=== PATIENT | male | born 1940 | race Caucasian/White ===

== ENCOUNTER 2017-04-30 21:02 | Inpatient (IN) | payer MEDICARE, OTHER ==
[~2017-04-30 21:02] MED LIST: ASPI-99 PO; LOSA50TA PO; VYTO10TA35 PO
[2017-04-30 21:23] VITALS: BP 71/43; PULSE 58; RESP 16; TEMP 98.5; O2SAT 98
[2017-04-30 21:34] VITALS: BP 115/73; PULSE 54; RESP 16; TEMP 97.6; O2SAT 97
[2017-04-30] MEDS ORDERED: SODIUM CHLOR 0.9% 1000 ML INJ 1,000 ML IV SCH (21:38)
--- NOTE | 2017-04-30 21:42 | PD ---
HPI Chief Complaint: Pain: Acute or Chronic Time Seen by Provider: 21:35 Travel History International Travel<30 days: No Contact w/Intl Traveler<30days: No Traveled to known affect area: No History of Present Illness HPI 77yo M with PMH of HTN, CAD s/p CABG presents to the ED with c/o bilateral lower back pain that radiates to lower abdomen at around 8pm. Associated with nausea but not vomiting. Pt was sitting down when pain started and denies any fall or injuries. Denies any fever, chest pain, sob, focal weakness or numbness. PFSH Past Medical History Cancer: No Cardiovascular Problems: Yes (CT/ CABG) Diabetes: No Endocrine: Yes (PARATHYROID ADENOMA) Genitourinary: No Hepatitis: No Hiatal Hernia: No Immune Disorder: No Musculoskeletal: No Neurologic: No Psychiatric: No Reproductive: No Respiratory: No Thyroid Disease: No Past Surgical History Abdominal Surgery: Yes (APPY) AICD: No Cardiac Surgery: Yes (CABG) Endocrine Surgery: Yes (PARTIAL PARATHYROIDECTOMY/ ADENOMA EXC.) Joint Replacement: Yes (LEFT KNEE) Oral Surgery: Yes (TONSILLECTOMY) Pacemaker: No Social History Tobacco Use: No Substance Use: No Allergies-Medications (Allergen,Severity, Reaction): Coded Allergies: meperidine (Unverified Adverse Reaction, Severe, PROJECTILE VOMITING, RASH , 10/05/16) TRUNK RASH codeine (Unverified Adverse Reaction, Unknown, 10/05/16) DOES NOT RECALL ADVERSE RXN Reported Meds & Prescriptions Reported Meds & Active Scripts Active Reported Simvastatin 40 Mg Tab 40 Mg PO HS Aspirin 81 Mg Chew 81 Mg CHEW DAILY Losartan (Losartan Potassium) 25 Mg Tab 25 Mg PO DAILY Review of Systems Except as stated in HPI: all other systems reviewed are Neg Physical Exam Narrative GENERAL: 77yo M in moderate distress. SKIN: Focused skin assessment warm/dry. HEAD: Atraumatic. Normocephalic. EYES: Pupils equal and round. No scleral icterus. No injection or drainage. ENT: No nasal bleeding or discharge. Mucous membranes pink and moist. NECK: Trachea midline. No JVD. CARDIOVASCULAR: Regular rate and rhythm. No murmur appreciated. RESPIRATORY: No accessory muscle use. Clear to auscultation. Breath sounds equal bilaterally. GASTROINTESTINAL: Abdomen soft, +TTP right flank. +TTP left lower abdomen. No rebound tenderness or guarding. BACK: No midline ttp thoracic or lumbar spine. No CVA tenderness bilaterally. Pain is bilateral lumbar but not tender to palpation. MUSCULOSKELETAL: No obvious deformities. No clubbing. No cyanosis. No edema. NEUROLOGICAL: Awake and alert. No obvious cranial nerve deficits. Motor grossly within normal limits. Normal speech. PSYCHIATRIC: Appropriate mood and affect; insight and judgment normal. Data Data Last Documented VS Vital Signs Date Time Temp Pulse Resp B/P (MAP) Pulse Ox O2 Delivery O2 Flow Rate FiO2 04/30/17 23:32 71 18 129/72 (91) 97 Nasal Cannula 2.00 04/30/17 21:34 97.6 Orders Orders Complete Blood Count With Diff (04/30/17 21:38) Comprehensive Metabolic Panel (04/30/17 21:38) Lipase (04/30/17 21:38) Prothrombin Time / Inr (Pt) (04/30/17 21:38) Act Partial Throm Time (Ptt) (04/30/17 21:38) Urinalysis - C+S If Indicated (04/30/17 21:38) Ct Abd/Pel W Iv Contrast(Rout) (04/30/17 21:38) Ondansetron Inj (Zofran Inj) (04/30/17 21:45) Sodium Chlor 0.9% 1000 Ml Inj (Ns 1000 M (04/30/17 21:38) Electrocardiogram (04/30/17 21:38) Ketorolac Inj (Toradol Inj) (04/30/17 21:45) Morphine Inj (Morphine Inj) (04/30/17 22:30) Iodixanol 320 Inj (Rad Ct) (Visipaque 32 (04/30/17 23:08) Type And Screen (04/30/17 23:27) Morphine Inj (Morphine Inj) (04/30/17 23:45) Blood Product Administration (04/30/17 23:37) Sodium Chlor 0.9% 250 Ml Inj (Ns 250 Ml (04/30/17 23:45) Consult Vascular Surgery (04/30/17 ) Sodium Chlor 0.9% 1000 Ml Inj (Ns 1000 M (05/01/17 00:00) Admit Order (Ed Use Only) (05/01/17 00:02) Labs Laboratory Tests Test 04/30/17 21:50 White Blood Count 9.1 TH/MM3 Red Blood Count 4.70 MIL/MM3 Hemoglobin 13.9 GM/DL Hematocrit 41.4 % Mean Corpuscular Volume 88.2 FL Mean Corpuscular Hemoglobin 29.6 PG Mean Corpuscular Hemoglobin Concent 33.6 % Red Cell Distribution Width 14.1 % Platelet Count 266 TH/MM3 Mean Platelet Volume 8.1 FL Neutrophils (%) (Auto) 72.9 % Lymphocytes (%) (Auto) 17.8 % Monocytes (%) (Auto) 6.5 % Eosinophils (%) (Auto) 2.2 % Basophils (%) (Auto) 0.6 % Neutrophils # (Auto) 6.6 TH/MM3 Lymphocytes # (Auto) 1.6 TH/MM3 Monocytes # (Auto) 0.6 TH/MM3 Eosinophils # (Auto) 0.2 TH/MM3 Basophils # (Auto) 0.1 TH/MM3 CBC Comment DIFF FINAL Differential Comment Prothrombin Time 10.6 SEC Prothromb Time International Ratio 1.0 RATIO Activated Partial Thromboplast Time 21.0 SEC Blood Urea Nitrogen 29 MG/DL Creatinine 1.75 MG/DL Random Glucose 147 MG/DL Total Protein 6.8 GM/DL Albumin 3.8 GM/DL Calcium Level 9.8 MG/DL Alkaline Phosphatase 76 U/L Aspartate Amino Transf (AST/SGOT) 23 U/L Alanine Aminotransferase (ALT/SGPT) 25 U/L Total Bilirubin 0.4 MG/DL Sodium Level 140 MEQ/L Potassium Level 4.9 MEQ/L Chloride Level 106 MEQ/L Carbon Dioxide Level 24.2 MEQ/L Anion Gap 10 MEQ/L Estimat Glomerular Filtration Rate 38 ML/MIN Lipase 202 U/L [facility] Medical Decision Making Medical Screen Exam Complete: Yes Emergency Medical Condition: Yes Interpretation(s) EKG: Sinus bradycardia at 57bpm. Normal axis. No ST segment elevation or depression. Differential Diagnosis Nephrolithiasis vs. colitis vs. diverticulitis vs. AAA Narrative Course 77yo M with CAD s/p CABG here with sudden lower back pain radiating to lower abdomen at 8pm today. Denies any trauma, focal weakness or numbness. Pt was initially hypotensive at triage at 71/43 but repeat BP was 115/73. Pt was initially given toradol for pain since he was hypotensive. Pt was still in a lot of pain and BP has improved so given morphine 2mg IV. Pt return from CT scan and still in a lot of pain. BP is now 129/72 so another 2mg of morphine given. CT a/p showed 8.3 x 9.5 x 12.4 cm infrarenal abdominal aortic aneurysm with impending rupture. There is active bleeding into the aneurysm sac. I called Dr. Briggs, vascular surgeon immediately and discuss case with him at 11: 24pm. Dr. Briggs is on his way in. Type and screen sent. PRBC ordered just in case , ordered 4 units total and to transfuse one now. Pt has one 18 gauge peripheral IV and will place another large bore peripheral IV. Dr. Briggs arrived and evaluated the patient. He obtained consent and will take pt to the OR immediately. He also placed a central line. Discussed with escrow manager Dr. Dodd and accepted to his service. Critical Care Narrative Aggregate critical care time was 50 minutes. Time to perform other separately billable procedures was not included in the critical care time. My time did not include minutes spent treating any other patients simultaneously or on activities that did not directly contribute to the patient's treatment. The services I provided to this patient were to treat and/or prevent clinically significant deterioration that could result in: Cardiovascular collapse or . I provided critical care services requiring my management, as noted below: Chart data review, documentation time, medication orders and management, vital sign assessments/reviewing monitor data, ordering and reviewing lab tests, ordering and interpreting/reviewing x- rays and diagnostic studies, care of the patient and discussion of the patient with the admitting physicians. Diagnosis Primary Impression: Abdominal aortic aneurysm (AAA) greater than 5.5 cm in diameter in male Admitting Information Admitting Physician Requests: Admit Melinda Klein DO Apr 30, 2017 21:42
[2017-04-30] MEDS ORDERED: ONDANSETRON HCL 4 MG/2 ML VIAL IVP ONE (21:45)
[2017-04-30] MEDS ORDERED: KETOROLAC TROMETHAMINE 30 MG/ML (IVP) VIAL IVP ONE (21:45)
[2017-04-30] MEDS ORDERED: ASPI-516 CHEW (22:02)
[2017-04-30] MEDS ORDERED: SIMV40TA PO (22:02)
[2017-04-30] MEDS ORDERED: LOSA25TA PO (22:02)
[2017-04-30 22:24] LABS: AUTOMATED NEUTROPHIL # 6.6 TH/MM3 (1.8-7.7); BASOPHIL # 0.1 TH/MM3 (0-0.2); BASOPHIL % 0.6 % (0.0-2.0); EOSINOPHIL # 0.2 TH/MM3 (0-0.4); EOSINOPHIL % 2.2 % (0.0-4.0); HEMATOCRIT 41.4 % (39.0-51.0); HEMOGLOBIN 13.9 GM/DL (13.0-17.0); LYMPH % 17.8 % (9.0-44.0); LYMPHOCYTE # 1.6 TH/MM3 (1.0-4.8); MEAN CELL VOLUME 88.2 FL (80.0-100.0); MEAN CORPUSCULAR HEMOGLOBIN 29.6 PG (27.0-34.0); MEAN CORPUSCULAR HGB CONC 33.6 % (32.0-36.0); MEAN PLATELET VOLUME 8.1 FL (7.0-11.0); MONO % 6.5 % (0.0-8.0); MONOCYTE # 0.6 TH/MM3 (0-0.9); NEUT % 72.9 % (16.0-70.0); PLATELET COUNT 266 TH/MM3 (150-450); RED CELL DISTRIBUTION WIDTH 14.1 % (11.6-17.2); WHITE BLOOD COUNT 9.1 TH/MM3 (4.0-11.0)
[2017-04-30] MEDS ORDERED: MORPHINE SULFATE 2 MG/ML INJ IV PUSH ONE ×2 (22:30→23:45)
[2017-04-30 22:33] LABS: ALBUMIN 3.8 GM/DL (3.4-5.0); AST (GOT) 23 U/L (15-37); BICARBONATE 24.2 MEQ/L (21.0-32.0); BLOOD UREA NITROGEN 29 MG/DL (7-18); CALCIUM 9.8 MG/DL (8.5-10.1); CHLORIDE 106 MEQ/L (98-107); CREATININE 1.75 MG/DL (0.60-1.30); GLOMERULAR FILTRATION RATE 38 ML/MIN (>89); GLUCOSE,RANDOM 147 MG/DL (74-106); SODIUM (NA) 140 MEQ/L (136-145)
[2017-04-30 22:36] LABS: ALKALINE PHOSPHATASE 76 U/L (45-117); ALT (GPT) 25 U/L (12-78); TOTAL BILIRUBIN ADULT 0.4 MG/DL (0.2-1.0); TOTAL PROTEIN 6.8 GM/DL (6.4-8.2)
[2017-04-30 22:55] LABS: PROTHROMBIN TIME - PATIENT 10.6 SEC (9.8-11.6)
[2017-04-30] MEDS ORDERED: IODIXANOL 320 MG/ML 10 ML VIAL (for Rad CT) IVCONTRAST ONE (23:08)
--- NOTE | 2017-04-30 23:24 | RADRPT ---
EXAM DATE/TIME: 04/30/2017 23:04 [facility] COMPARISON: No previous studies available for comparison. INDICATIONS : Abdominal and lower back pain with nausea. IV CONTRAST: 47 cc Visipaque (iodixanol) IV ORAL CONTRAST: No oral contrast ingested. RADIATION DOSE: 11.89 CTDIvol (mGy) MEDICAL HISTORY : Myocardial infarction. Hypertension. Cardiovascular disease SURGICAL HISTORY : CABG Appendectomy. ENCOUNTER: Initial ACUITY: 1 day PAIN SCALE: 8/10 LOCATION: Bilateral abdomen TECHNIQUE: Volumetric scanning of the abdomen and pelvis was performed. Using automated exposure control and ad justment of the mA and/or kV according to patient size, radiation dose was kept as low as reasonably achievable to obtain optimal diagnostic quality images. DICOM format image data is available electro nically for review and comparison. FINDINGS: There is an 8.3 x 9.5 cm infrarenal abdominal aortic aneurysm. There is active bleeding into the aneu rysm sac inferiorly, series 2 image 53. There is some edema around the aneurysm but I don't see extra luminal blood. The aneurysm sac is approximately 12.4 cm craniocaudal. It begins just below the renal arteries and terminates approximately 3 cm above the bifurcation. No acute abnormality seen elsewhere. 5 mm nonobstructing stone lower pole of the right kidney. No obs truction or inflammatory changes are seen of the gastrointestinal tract. There is a fat containing in guinal hernia on the left. Atelectasis seen of the visualized lung bases. No acute bony abnormality. CONCLUSION: 8.3 x 9.5 x 12.4 cm infrarenal abdominal aortic aneurysm with impending rupture. There is active blee ding into the aneurysm sac. Dr. Klein notified by phone 11:20 PM. Victoriano Miranda MD on April 30, 2017 at 23:17 Board Certified Radiologist. This report was verified electronically.
[2017-04-30 23:32] VITALS: BP 129/72; PULSE 71; RESP 18; O2SAT 97
[2017-04-30] MEDS ORDERED: SODIUM CHLOR 0.9% 250 ML INJ 250 ML IV ONE (23:45)
[2017-05-01] VITALS (16 sets, daily range): BP systolic 80–128; BP diastolic 50–79; PULSE 65–102; RESP 14–20; TEMP 97.5–99.2; O2SAT 94–100
[2017-05-01] MEDS ORDERED: NOREPINEPHRINE 4 MG/4 ML AMP ONE (00:09)
[2017-05-01] MEDS ORDERED: VASOPRESSIN 20 UNITS/ML VIAL ONE (00:10)
[2017-05-01] MEDS ORDERED: NITROGLYCERIN-D5W 50 MG/250 ML 250 ML ONE (00:34)
[2017-05-01] MEDS ORDERED: HEPARIN SODIUM - IV 10,000 UNITS/10 ML VIAL ONE (01:15)
[2017-05-01 01:28] LABS: BILIRUBIN, URINE NEG (NEG); BLOOD, URINE NEG (NEG); GLUCOSE,URINE NEG (NEG); KETONE, URINE NEG (NEG); NITRITE,URINE NEG (NEG); PH, URINE 6.5 (5.0-8.5); SQUAMOUS EPITHELIAL CELL URINE <1 /hpf (0-5); URINE COLOR YELLOW (YELLW/STRAW); URINE LEUKOCYTE ESTERASE NEG (NEG)
[2017-05-01] MEDS ORDERED: PIPERACIL-TAZO 4.5 GM PREMIX 100 ML IV ONE (02:00)
[2017-05-01] MEDS ORDERED: SODIUM BICARBONATE 8.4% INJ 50 MEQ/50 ML SYR ONE (03:46)
[2017-05-01] MEDS ORDERED: SODIUM BICARBONATE 8.4% INJ 0 ML ONE (03:46)
[2017-05-01] MEDS ORDERED: CALCIUM CHLORIDE 10% SOLN 1 GRAM/10 ML SYR ONE (03:46)
[2017-05-01] MEDS ORDERED: ALBUMIN 5% INJ 250 ML IV ONE (03:54)
[2017-05-01] MEDS ORDERED: SODIUM CHLOR 0.9% 1000 ML INJ 1,000 ML IV SCH (05:28)
[2017-05-01] MEDS ORDERED: NALOXONE HCL 0.4 MG/ML AMP IV PUSH PRN (05:30)
[2017-05-01] MEDS ORDERED: MISCELLANEOUS NURSING INFORMATION XX SCH (05:30)
[2017-05-01] MEDS ORDERED: ONDANSETRON HCL 4 MG/2 ML VIAL IV PUSH PRN (05:30)
[2017-05-01] MEDS ORDERED: Post-op Orders (for Pharmacy) XX ONE (05:30)
[2017-05-01] MEDS ORDERED: ACETAMINOPHEN 325 MG TAB PO PRN (05:30)
[2017-05-01] MEDS ORDERED: fentaNYL DRIP 250 ML IV PRN ×2 (05:30→05:45)
[2017-05-01] MEDS ORDERED: MIDAZOLAM HCL 2 MG/2 ML VIAL IV PUSH ONE (05:30)
[2017-05-01] MEDS ORDERED: SODIUM CHLORIDE 0.9% FLUSH 10 ML FLUSH IV FLUSH PRN ×2 (05:30)
[2017-05-01] MEDS ORDERED: RESP: ALBUTEROL 2.5 MG/IPRATROPIUM 0.5 MG NEB (PRN) INH (05:30)
[2017-05-01] MEDS ORDERED: MIDAZOLAM 100 MG/100 ML INJ 100 ML IV PRN (05:30)
[2017-05-01] MEDS ORDERED: CHLORHEXIDINE GLUCONATE 2 % 1 PACK (2 CLOTHS) TOP PRN (05:30)
[2017-05-01] MEDS ORDERED: PROPOFOL 500 MG/50 ML INJ 50 ML ONE (05:42)
[2017-05-01] MEDS ORDERED: NOREPINEPHRINE-DEXTROSE DRIP 250 ML IV PRN (05:45)
[2017-05-01] MEDS ORDERED: SODIUM CHLOR 0.9% 1000 ML INJ 1,000 ML IV ONE ×2 (05:45)
[2017-05-01] MEDS ORDERED: TERBUTALINE INJ 1 MG/ML AMP SQ PRN ×2 (05:45→07:45)
[2017-05-01] MEDS: PROPOFOL 1000 MG/100 ML INJ 100 ML IV PRN ×2 (06:01→07:55)
--- NOTE | 2017-05-01 06:08 | PD.CAR.PN ---
CVT Progress Note Subjective/Hospital Course: 05/01/2017 Patient with a posterior partially contained rupture of juxtarenal abdominal aortic aneurysm Status post emergent repair with a straight graft Patient now in the ICU Intensivists team consulted Most likely patient will be extubatable this morning while some additional studies are pending Objective: Vital Signs Date Time Temp Pulse Resp B/P (MAP) Pulse Ox O2 Delivery O2 Flow Rate FiO2 05/01/17 05:51 100 40 05/01/17 00:27 71 18 128/78 (95) 97 Nasal Cannula 2.00 04/30/17 23:32 71 18 129/72 (91) 97 Nasal Cannula 2.00 04/30/17 21:34 97.6 54 16 115/73 (87) 97 04/30/17 21:23 98.5 58 16 71/43 (52) 98 Room Air Labs: Laboratory Tests Test 04/30/17 21:50 05/01/17 00:35 05/01/17 01:53 05/01/17 04:22 White Blood Count 9.1 TH/MM3 (4.0-11.0) Red Blood Count 4.70 MIL/MM3 (4.50-5.90) Hemoglobin 13.9 GM/DL (13.0-17.0) Hematocrit 41.4 % (39.0-51.0) Mean Corpuscular Volume 88.2 FL (80.0-100.0) Mean Corpuscular Hemoglobin 29.6 PG (27.0-34.0) Mean Corpuscular Hemoglobin Concent 33.6 % (32.0-36.0) Red Cell Distribution Width 14.1 % (11.6-17.2) Platelet Count 266 TH/MM3 (150-450) Mean Platelet Volume 8.1 FL (7.0-11.0) Neutrophils (%) (Auto) 72.9 % (16.0-70.0) Lymphocytes (%) (Auto) 17.8 % (9.0-44.0) Monocytes (%) (Auto) 6.5 % (0.0-8.0) Eosinophils (%) (Auto) 2.2 % (0.0-4.0) Basophils (%) (Auto) 0.6 % (0.0-2.0) Neutrophils # (Auto) 6.6 TH/MM3 (1.8-7.7) Lymphocytes # (Auto) 1.6 TH/MM3 (1.0-4.8) Monocytes # (Auto) 0.6 TH/MM3 (0-0.9) Eosinophils # (Auto) 0.2 TH/MM3 (0-0.4) Basophils # (Auto) 0.1 TH/MM3 (0-0.2) CBC Comment DIFF FINAL Differential Comment Prothrombin Time 10.6 SEC (9.8-11.6) Prothromb Time International Ratio 1.0 RATIO Activated Partial Thromboplast Time 21.0 SEC (24.3-30.1) Blood Urea Nitrogen 29 MG/DL (7-18) Creatinine 1.75 MG/DL (0.60-1.30) Random Glucose 147 MG/DL (74-106) Total Protein 6.8 GM/DL (6.4-8.2) Albumin 3.8 GM/DL (3.4-5.0) Calcium Level 9.8 MG/DL (8.5-10.1) Alkaline Phosphatase 76 U/L (45-117) Aspartate Amino Transf (AST/SGOT) 23 U/L (15-37) Alanine Aminotransferase (ALT/SGPT) 25 U/L (12-78) Total Bilirubin 0.4 MG/DL (0.2-1.0) Sodium Level 140 MEQ/L (136-145) Potassium Level 4.9 MEQ/L (3.5-5.1) Chloride Level 106 MEQ/L (98-107) Carbon Dioxide Level 24.2 MEQ/L (21.0-32.0) Anion Gap 10 MEQ/L (5-15) Estimat Glomerular Filtration Rate 38 ML/MIN (>89) Lipase 202 U/L (73-393) Urine Color YELLOW (YELLW/STRAW) Urine Turbidity CLEAR (CLEAR) Urine pH 6.5 (5.0-8.5) Urine Specific [place] 1.036 (1.002-1.035) Urine Protein NEG mg/dL (NEG-TRACE) Urine Glucose (UA) NEG mg/dL (NEG) Urine Ketones NEG mg/dL (NEG) Urine Occult Blood NEG (NEG) Urine Nitrite NEG (NEG) Urine Bilirubin NEG (NEG) Urine Urobilinogen LESS THAN 2.0 MG/DL (LESS Urine Leukocyte Esterase NEG (NEG) Urine RBC LESS THAN 1 /hpf (0-3) Urine WBC LESS THAN 1 /hpf (0-5) Urine Squamous Epithelial Cells <1 /hpf (0-5) Microscopic Urinalysis Comment CULT NOT INDICATED Blood Gas Puncture Site DRAWN IN OR DRAWN IN OR Blood Gas Patient Temperature 98.6 98.6 Blood Gas HCO3 21 mmol/L (22-26) 20 mmol/L (22-26) Blood Gas Base Excess -4.0 mmol/L (-2-2) -5.3 mmol/L (-2-2) Blood Gas Oxygen Saturation 97 % (90-100) 98 % (90-100) Arterial Blood pH 7.35 (7.380-7.420) 7.31 (7.380-7.420) Arterial Blood Partial Pressure CO2 38 mmHg (38-42) 41 mmHg (38-42) Arterial Blood Partial Pressure O2 234 mmHg (61-120) 226 mmHg (61-120) Arterial Blood Oxygen Content 16.3 Vol % (12.0-20.0) 14.1 Vol % (12.0-20.0) Arterial Blood Carboxyhemoglobin 0.7 % (0-4) 0.5 % (0-4) Arterial Blood Methemoglobin 1.2 % (0-2) 1.0 % (0-2) Blood Gas Hemoglobin 11.5 G/DL (12.0-16.0) 9.9 G/DL (12.0-16.0) Blood Gas Inspired Oxygen 60 % 60 % Oxygen Delivery Device OR Result Diagram: 04/30/17214904/30/172149 Kevin Perez MD May 01, 2017 06:08
[2017-05-01] MEDS: metroNIDAZOLE 500 MG INJ 100 ML IV SCH ×3 (06:22→20:53)
[2017-05-01 06:30] LABS: AUTOMATED NEUTROPHIL # 12.7 TH/MM3 (1.8-7.7); BASOPHIL % 0.1 % (0.0-2.0); HEMOGLOBIN 10.7 GM/DL (13.0-17.0); LYMPH % 5.6 % (9.0-44.0); LYMPHOCYTE # 0.8 TH/MM3 (1.0-4.8); MEAN CORPUSCULAR HEMOGLOBIN 29.6 PG (27.0-34.0); MEAN CORPUSCULAR HGB CONC 33.3 % (32.0-36.0); MEAN PLATELET VOLUME 7.7 FL (7.0-11.0); MONO % 6.2 % (0.0-8.0); MONOCYTE # 0.9 TH/MM3 (0-0.9); NEUT % 88.1 % (16.0-70.0); PLATELET COUNT 194 TH/MM3 (150-450); WHITE BLOOD COUNT 14.5 TH/MM3 (4.0-11.0)
[2017-05-01] MEDS ORDERED: DO NOT ADM ANY ANTICOAGULANT DRUGS PRN (06:30)
[2017-05-01] MEDS: NORMOSOL R INJ 1,000 ML IV SCH ×4 (06:38→20:54)
[2017-05-01 06:50] LABS: ALBUMIN 2.8 GM/DL (3.4-5.0); BICARBONATE 22.2 MEQ/L (21.0-32.0); CALCIUM-PROTEIN CORRECTED 8.2 MG/DL (8.5-10.1); CREATININE 1.44 MG/DL (0.60-1.30); MAGNESIUM 2.2 MG/DL (1.5-2.5); TOTAL BILIRUBIN ADULT 0.5 MG/DL (0.2-1.0); TOTAL PROTEIN 4.9 GM/DL (6.4-8.2)
--- NOTE | 2017-05-01 06:50 | RADRPT ---
EXAM DATE/TIME: 05/01/2017 06:00 [facility] COMPARISON: CT ABDOMEN & PELVIS W CONTRAST, April 30, 2017, 23:04. INDICATIONS : Shortness of breath, possible pulmonary disease, Left subclavian central line placement. MEDICAL HISTORY : Myocardial infarction. Hypertension Cardiovascular disease. AAA SURGICAL HISTORY : CABG. Appendectomy. Abdominal aortic aneurysm repair. ENCOUNTER: Subsequent ACUITY: 2 days PAIN SCORE: Non-responsive. LOCATION: Bilateral chest FINDINGS: There is mild left base atelectasis. Lungs otherwise appear clear. No large effusion. No pneumothorax . Patient is now intubated. The endotracheal tube tip is approximately 3 cm above the adriel. There is a nasogastric tube now present as well, coiled in the upper stomach. There is a left subclavian centr al venous catheter with tip at the atriocaval junction. Median sternotomy changes are again noted. There appear to be some new midline laparotomy abby. CONCLUSION: 1. Apparent intra-midline laparotomy. 2. Mild left base atelectasis. Lungs otherwise clear. 3. Lines and tubes as above appear appropriately positioned. No pneumothorax or other acute complicat ion. Victoriano Miranda MD on May 01, 2017 at 6:47 Board Certified Radiologist. This report was verified electronically.
--- NOTE | 2017-05-01 07:33 | HHI.HP ---
HPI Service Critical Care Medicine Primary Care Physician Alonso Chakraborty MD Admission Diagnosis AAA Diagnosis: Travel History International Travel<30 Days: No Contact w/Intl Traveler <30 Da: No Traveled to Known Affected Are: No History of Present Illness HPI This is a 77-year-old male, with PMH of HTN, CAD s/p CABG presents to [facility] ED with c/o bilateral lower back pain that radiates to lower abdomen evening of 04/30/2017, which was with nausea. but not vomiting. CT of the abdomen and pelvis revealed an 8.3 x 9.5 x 12.4 cm infrarenal abdominal aortic aneurysm with active bleeding. The patient was transferred to the OR and emergent repair of contained ruptured juxtarenal AAA was performed. A right ulnar A-line was placed preoperatively 2/2 to the inability to radial due removal of bilateral radial arteries from CABG performed in 1999. The ulnar arterial line was removed at the end of the surgical case, a femoral line was attempted but unsuccessful. Aortic clamp time intraoperatively was 51 minutes, EBL approximately 500 cc, IV fluids 5 L. The patient was transported to CVICU, and critical care medicine was consulted. Upon initial evaluation in the CVICU systolic blood pressure was noted to be 77, the patient was bolused with 1 L of normal saline and placed on Levophed currently at 3 mcgs/minute, currently being weaned. History PFSH Past Medical History Cancer: No Cardiovascular Problems: Yes ([place]/ CABG) Diabetes: No Endocrine: Yes (PARATHYROID ADENOMA) Genitourinary: No Hepatitis: No Hiatal Hernia: No Immune Disorder: No Musculoskeletal: No Neurologic: No Psychiatric: No Reproductive: No Respiratory: No Thyroid Disease: No Past Surgical History Abdominal Surgery: Yes (APPY) AICD: No Cardiac Surgery: Yes (CABG) Endocrine Surgery: Yes (PARTIAL PARATHYROIDECTOMY/ ADENOMA EXC.) Joint Replacement: Yes (LEFT KNEE) Oral Surgery: Yes (TONSILLECTOMY) Pacemaker: No Social History Substance Use: No Allergies-Medications Allergies-Medications (Allergen,Severity, Reaction): Coded Allergies: meperidine (Unverified Adverse Reaction, Severe, PROJECTILE VOMITING, RASH , 10/05/16) TRUNK RASH codeine (Unverified Adverse Reaction, Unknown, 10/05/16) DOES NOT RECALL ADVERSE RXN Reported Meds & Prescriptions Reported Meds & Active Scripts Active Reported Simvastatin 40 Mg Tab 40 Mg PO HS Aspirin 81 Mg Chew 81 Mg CHEW DAILY Losartan (Losartan Potassium) 25 Mg Tab 25 Mg PO DAILY Review of Systems ROS 12 point review of systems done with the patient negative except for pertinent positives mentioned in the above history and physical Physical Exam Vital Signs Vital Signs Date Time Temp Pulse Resp B/P (MAP) Pulse Ox O2 Delivery O2 Flow Rate FiO2 05/01/17 05:51 100 40 05/01/17 00:27 71 18 128/78 (95) 97 Nasal Cannula 2.00 04/30/17 23:32 71 18 129/72 (91) 97 Nasal Cannula 2.00 04/30/17 21:34 97.6 54 16 115/73 (87) 97 04/30/17 21:23 98.5 58 16 71/43 (52) 98 Room Air Physical Exam GENERAL: This is a well-developed well-nourished male intubated and sedated, shivering Anu hugger on high setting SKIN: Warm and dry. HEAD: Atraumatic. Normocephalic. EYES: Pupils equal and round. No scleral icterus. No injection or drainage. ENT: No nasal bleeding or discharge. Mucous membranes pink and moist. NECK: Trachea midline. No JVD. CARDIOVASCULAR: Tachycardic rate rate, regular rhythm. Radial pulses absent, lateral ulnar pulses dopplerable, dorsalis pedis pulses bilateral dopplerable RESPIRATORY: No accessory muscle use. Clear to auscultation. Breath sounds equal bilaterally. GASTROINTESTINAL: Abdomen soft, non-tender, nondistended. No guarding. Midline abdominal dressing C/D/I. hypoactive bowel sounds MUSCULOSKELETAL: Extremities without clubbing, cyanosis, or edema. No obvious deformities. NEUROLOGICAL: . RASS -2 currently on propofol and fentanyl infusion. Prior to sedation, follows commands in all 4 extremities postoperatively. Laboratory Laboratory Tests Test 04/30/17 21:50 05/01/17 00:35 05/01/17 01:53 05/01/17 04:22 White Blood Count 9.1 Red Blood Count 4.70 Hemoglobin 13.9 Hematocrit 41.4 Mean Corpuscular Volume 88.2 Mean Corpuscular Hemoglobin 29.6 Mean Corpuscular Hemoglobin Concent 33.6 Red Cell Distribution Width 14.1 Platelet Count 266 Mean Platelet Volume 8.1 Neutrophils (%) (Auto) 72.9 Lymphocytes (%) (Auto) 17.8 Monocytes (%) (Auto) 6.5 Eosinophils (%) (Auto) 2.2 Basophils (%) (Auto) 0.6 Neutrophils # (Auto) 6.6 Lymphocytes # (Auto) 1.6 Monocytes # (Auto) 0.6 Eosinophils # (Auto) 0.2 Basophils # (Auto) 0.1 CBC Comment DIFF FINAL Differential Comment Prothrombin Time 10.6 Prothromb Time International Ratio 1.0 Activated Partial Thromboplast Time 21.0 Blood Urea Nitrogen 29 Creatinine 1.75 Random Glucose 147 Total Protein 6.8 Albumin 3.8 Calcium Level 9.8 Alkaline Phosphatase 76 Aspartate Amino Transf (AST/SGOT) 23 Alanine Aminotransferase (ALT/SGPT) 25 Total Bilirubin 0.4 Sodium Level 140 Potassium Level 4.9 Chloride Level 106 Carbon Dioxide Level 24.2 Anion Gap 10 Estimat Glomerular Filtration Rate 38 Lipase 202 Urine Color YELLOW Urine Turbidity CLEAR Urine pH 6.5 Urine Specific [place] 1.036 Urine Protein NEG Urine Glucose (UA) NEG Urine Ketones NEG Urine Occult Blood NEG Urine Nitrite NEG Urine Bilirubin NEG Urine Urobilinogen LESS THAN 2.0 Urine Leukocyte Esterase NEG Urine RBC LESS THAN 1 Urine WBC LESS THAN 1 Urine Squamous Epithelial Cells <1 Microscopic Urinalysis Comment CULT NOT INDICATED Blood Gas Puncture Site DRAWN IN OR DRAWN IN OR Blood Gas Patient Temperature 98.6 98.6 Blood Gas HCO3 21 20 Blood Gas Base Excess -4.0 -5.3 Blood Gas Oxygen Saturation 97 98 Arterial Blood pH 7.35 7.31 Arterial Blood Partial Pressure CO2 38 41 Arterial Blood Partial Pressure O2 234 226 Arterial Blood Oxygen Content 16.3 14.1 Arterial Blood Carboxyhemoglobin 0.7 0.5 Arterial Blood Methemoglobin 1.2 1.0 Blood Gas Hemoglobin 11.5 9.9 Blood Gas Inspired Oxygen 60 60 Oxygen Delivery Device OR Test 05/01/17 06:00 White Blood Count 14.5 Red Blood Count 3.60 Hemoglobin 10.7 Hematocrit 32.0 Mean Corpuscular Volume 89.0 Mean Corpuscular Hemoglobin 29.6 Mean Corpuscular Hemoglobin Concent 33.3 Red Cell Distribution Width 14.0 Platelet Count 194 Mean Platelet Volume 7.7 Neutrophils (%) (Auto) 88.1 Lymphocytes (%) (Auto) 5.6 Monocytes (%) (Auto) 6.2 Eosinophils (%) (Auto) 0.0 Basophils (%) (Auto) 0.1 Neutrophils # (Auto) 12.7 Lymphocytes # (Auto) 0.8 Monocytes # (Auto) 0.9 Eosinophils # (Auto) 0.0 Basophils # (Auto) 0.0 CBC Comment DIFF FINAL Differential Comment Blood Urea Nitrogen 21 Creatinine 1.44 Random Glucose 174 Total Protein 4.9 Albumin 2.8 Calcium Level 7.0 Magnesium Level 2.2 Alkaline Phosphatase 49 Aspartate Amino Transf (AST/SGOT) 15 Alanine Aminotransferase (ALT/SGPT) 16 Total Bilirubin 0.5 Sodium Level 140 Potassium Level 5.0 Chloride Level 108 Carbon Dioxide Level 22.2 Anion Gap 10 Estimat Glomerular Filtration Rate 48 Lactic Acid Level 3.9 Protein Corrected Calcium 8.2 Result Diagram: 05/01/1759905/01/17599 Imaging Last Impressions Abdomen/Pelvis CT 04/30/172137 Signed Impressions: Service Date/Time: Sunday, April 30, 2017 23:04 - CONCLUSION: 8.3 x 9.5 x 12.4 cm infrarenal abdominal aortic aneurysm with impending rupture. There is active bleeding into the aneurysm sac. Dr. Klein notified by phone 11:20 PM. MD Yudy Crystal VTE Risk Assessment Caprini VTE Risk Assessment: Mod/High Risk (score >= 2) Caprini Risk Assessment Model Point Value = 1 Point Value = 2 Point Value = 3 Point Value = 5 Age 41-60 Minor surgery BMI > 25 kg/m2 Swollen legs Varicose veins or History of unexplained or recurrent spontaneous Oral contraceptives or hormone replacement Sepsis (< 1 month) Serious lung disease, including pneumonia (< 1 month) Abnormal pulmonary function Acute myocardial infarction Congestive heart failure (< 1 month) History of inflammatory bowel disease Medical patient at bed rest Age 61-74 Arthroscopic surgery Major open surgery (> 45 min) Laparoscopic surgery (> 45 min) Malignancy Confined to bed (> 72 hours) Immobilizing plaster cast Central venous access Age >= 75 History of VTE Family history of VTE Factor V Leiden Prothrombin [id number] Lupus anticoagulant Anticardiolipin antibodies Elevated serum homocysteine Heparin-induced thrombocytopenia Other congenital or acquired thrombophilia Stroke (< 1 month) Elective arthroplasty Hip, pelvis, or leg fracture Acute spinal cord injury (< 1 month) Prophylaxis Regimen Total Risk Factor Score Risk Level Prophylaxis Regimen 0-1 Low Early ambulation 2 Moderate Order ONE of the following: *Sequential Compression Device (SCD) *Heparin 5000 units SQ BID 3-4 Higher Order ONE of the following medications: *Heparin 5000 units SQ TID *Enoxaparin/Lovenox 40 mg SQ daily (WT < 150 kg, CrCl > 30 mL/min) *Enoxaparin/Lovenox 30 mg SQ daily (WT < 150 kg, CrCl > 10-29 mL/min) *Enoxaparin/Lovenox 30 mg SQ BID (WT < 150 kg, CrCl > 30 mL/min) AND/OR *Sequential Compression Device (SCD) 5 or more Highest Order ONE of the following medications: *Heparin 5000 units SQ TID (Preferred with Epidurals) *Enoxaparin/Lovenox 40 mg SQ daily (WT < 150 kg, CrCl > 30 mL/min) *Enoxaparin/Lovenox 30 mg SQ daily (WT < 150 kg, CrCl > 10-29 mL/min) *Enoxaparin/Lovenox 30 mg SQ BID (WT < 150 kg, CrCl > 30 mL/min) AND *Sequential Compression Device (SCD) Assessment and Plan Problem List: (1) Hypertension ICD Code: I10 - Essential (primary) hypertension Status: Chronic (2) Coronary artery disease ICD Code: I25.10 - Atherosclerotic heart disease of [place] coronary artery without angina pectoris Status: Chronic (3) Abdominal aortic aneurysm (AAA) greater than 5.5 cm in diameter in male ICD Code: I71.4 - Abdominal aortic aneurysm, without rupture Status: Acute Assessment and Plan Assessment This is a 77-year-old male status post emergent repair of a ruptured 8.3 x 9.5 12.4 cm infrarenal abdominal aortic aneurysm with active bleeding. Patient has a history of [place] status post CABG, coronary artery disease, received 5 L IV fluid intraoperatively. Patient remains intubated at this time. Admit to ICU. Plan by systems: Neurologic: Neurochecks per ICU protocol Patient currently on propofol 30 mcgs/minute, fentanyl 100 mcgs/hour to maintain ventilator synchrony. Plan on weaning sedation Initiate sedation vacation Tylenol for fever or pain scale 1-5 Oxycodone 5 mg every 4 hours PRN Dilaudid 2 mg every 4 hours when necessary for breakthrough pain Respiratory: Acute hypoxemic respiratory insufficiency Patient currently intubated Maintain ABG Obtain chest x-ray-no stop Begin CPAP trials ABGs and chest x-rays when clinically indicated Cardiovascular: History of [place] S/P CABG 200 w/ B/L radial artery harvest Coronary artery disease Juxtarenal aortic aneurysm (ruptured) S/P repair of 8.3 x 9.5 x 12.4 cm infrarenal AAA POD #0 Obtain echo Maintain map greater than 65 Wean norepinephrine infusion as tolerated Renal: Maintain [place]-monitor hourly urine output, notify ship's engineer of less than 0.5 cc/kg per hour -- Strict I/Os FEN/GI: Maintain NG tube Maintain NPO status Zofran for nausea Bowel regimen Heme/ID: Leukocytosis Obtain postop CBC Monitor CBC Endocrine: Hyperglycemia of critical illness -- SSI -low dose regimen Prophylaxis: GI Prophylaxis Famotidine DVT Prophylaxis -- SCDs Pharmacologic DVT prophylaxis held, will defer for to vascular surgeon when to initiate Lines: Left subclavian triple-lumen 3 in OR, peripheral IVs Dispo: my billing statement This patient remains critically ill with one or more organ systems which are or may become a threat to life. I have spent in excess of 48 minutes discontinuously in the care and management of this patient. This time is exclusive of procedures, and includes, but is not limited to, evaluation of the patient, review of the medical record, discussions with family, consultants, nursing staff, or respiratory therapy, and documentation in the medical record. 1820: CPAP trial successful, SBT parameters achieved. Patient extubated, normotensive comfortable. Vasopressors discontinued. Critical care medicine will sign off. Thank you for allowing participation in the care of this patient. Code Status Full Discussed Condition With , ETHNOLOGY PROFESSOR Miriam Rutledge MD May 01, 2017 07:33
[2017-05-01] MEDS ORDERED: NOREPINEPHRINE INJ 4 MG in SODIUM CHLOR 0.9% 250 ML INJ 246 ML IV PRN (07:45)
[2017-05-01] MEDS: SODIUM CHLORIDE 0.9% FLUSH 10 ML FLUSH IV FLUSH SCH ×2 (07:55→20:52)
[2017-05-01] MEDS: PANTOPRAZOLE SODIUM 40 MG VIAL IV PUSH SCH (07:55)
[2017-05-01] MEDS: FAMOTIDINE 20 MG/2 ML VIAL IV PUSH SCH ×2 (07:55→20:52)
[2017-05-01] MEDS: CHLORHEXIDINE 0.12% (ORAL KIT) 15 ML CUP MT SCH ×2 (07:55→20:00)
[2017-05-01] MEDS: INSULIN ASPART SUPPLEMENTAL SCALE SQ SCH ×3 (07:56→18:00)
[2017-05-01] MEDS ORDERED: SODIUM CHLORIDE 0.9% FLUSH 10 ML FLUSH IV FLUSH SCH (09:00)
--- NOTE | 2017-05-01 10:01 | EKG ---
Date Performed: 05/01/2017 Time Performed: 05:08:46 PTAGE: 77 years EKG: Marked baseline artifact present Sinus tachycardia with sinus arrhythmia. Inferior infarct - age undetermined Lateral T wave changes are nonspecific Abnormal ECG Compared to prior electrocardi ogram, rate has increased DOCTOR: Kavon Emery Interpretating Date/Time 05/01/2017 10:00:55
--- NOTE | 2017-05-01 10:16 | EKG ---
Date Performed: 04/30/2017 Time Performed: 21:43:34 PTAGE: 77 years EKG: SINUS BRADYCARDIA BORDERLINE ECG No significant change from prior electrocardiogram. PREVIOUS TRACING : 08/16/2012 12.57 DOCTOR: Kavon Emery Interpretating Date/Time 05/01/2017 10:15:31
[2017-05-01] MEDS: RESP: ALBUTEROL 2.5 MG/IPRATROPIUM 0.5 MG NEB (SCH) NEB ×3 (10:32→20:08)
--- NOTE | 2017-05-01 11:54 | MH ---
cc: Kevin Perez MD DATE OF ADMISSION: 05/01/2017 ADMITTING PHYSICIAN: Dr. Perez, Vascular Surgery REASON FOR ADMISSION: Posterior rupture of large juxtarenal abdominal aortic aneurysm. HISTORY OF PRESENT ILLNESS: This 77-year-old male with past medical history of hypertension, coronary artery disease, presents to the emergency room with severe back pain radiating around the abdomen. The patient has nausea but no vomiting. The patient said the pain started just before he got to the emergency room but was severe and presented right away. He was found to have a huge abdominal aortic aneurysm and hence, the consultation. PAST MEDICAL HISTORY: Coronary artery disease. The patient had coronary artery bypass surgery and parathyroid adenoma removed in the last 12 years or so. Left knee replacement and tonsillectomy. CURRENT MEDICATIONS: 1. Losartan 2. Aspirin 3. Simvastatin SOCIAL HISTORY: The patient does not smoke, does not drink. He is a retired intellectual. PHYSICAL EXAMINATION: GENERAL: Reveals a very pleasant, friendly 77-year-old gentleman in moderate distress. HEENT: Normocephalic. No trauma to the head. Pupils are equal and reactive. Extraocular muscles intact. NECK: Supple. Bilateral carotid pulses and bilateral faint carotid bruits. CHEST: Bilateral breath sounds. HEART: Regular rhythm. The patient is hemodynamically at this point still stable. VITAL SIGNS: Blood pressure is about 110/80. ABDOMEN: Somewhat distended. Very tender on palpation. In the right midabdomen and right upper quadrant the patient has a huge mass that is pulsatile consistent with abdominal aortic aneurysm. This is actually visible by looking at the patient. No other masses are noted. Pelvis is stable. The patient has good proximal and distal pulses on palpation. No acute vascular deficit. BACK: Normal, although the patient is extremely tender over left flank. IMPRESSION: I reviewed laboratory and diagnostic procedures. This gentleman has a huge abdominal aortic aneurysm with posterior rupture toward the spine, so this is basically contained rupture for the time being. The patient needs immediate surgery. This is a juxtarenal aneurysm and endovascular approach would not suffice. The patient will be taken to the operating room immediately. I explained to the patient the risks of the procedure. Kevin Perez MD SJ/TL/manju , 06:06 AM , 09:43 AM SMOOTH
[2017-05-01] MEDS ORDERED: PROPOFOL 200 MG/20 ML AMP IV ONE (12:00)
[2017-05-01] MEDS ORDERED: EPINEPHrine HCL (1:1000) 1 MG/ML VIAL IV ONE (12:00)
[2017-05-01] MEDS ORDERED: PHENYLEPH/NS 1000 MCG/10 ML SYR IV ONE (12:00)
[2017-05-01] MEDS ORDERED: SODIUM CHLORIDE 0.9% 20 ML VIAL IV ONE (12:00)
[2017-05-01] MEDS ORDERED: NEOSTIGMINE 5 MG/5 ML SYRINGE IV PUSH ONE (12:00)
[2017-05-01] MEDS ORDERED: ePHEDrine/NS 25 MG/5 ML SYRINGE IV ONE (12:00)
[2017-05-01] MEDS ORDERED: ceFAZolin INJ 1,000 MG VIAL IV ONE (12:00)
[2017-05-01] MEDS ORDERED: GLYCOPYRROLATE 1 MG/5 ML SYRINGE IV PUSH ONE (12:00)
[2017-05-01] MEDS ORDERED: LIDOCAINE HCL 1% PF 5 ML SYRINGE OTHER ONE (12:00)
[2017-05-01] MEDS ORDERED: ROCURONIUM INJ 50 MG/5 ML SYRINGE IV PUSH ONE (12:00)
[2017-05-01] MEDS ORDERED: ONDANSETRON HCL 4 MG/2 ML VIAL IV ONE (12:00)
[2017-05-01] MEDS: ACETAMINOPHEN 1000 MG/100 ML 100 ML IV SCH ×3 (13:04→23:50)
[2017-05-01] MEDS: HYDROmorphone HCL PF 2 MG/ML VIAL IV PUSH PRN ×2 (13:57→20:15)
--- NOTE | 2017-05-01 20:55 | PD.CAR.PN ---
CVT Progress Note Subjective/Hospital Course: 05/01/2017 Patient with a posterior partially contained rupture of juxtarenal abdominal aortic aneurysm Status post emergent repair with a straight graft Patient now in the ICU Intensivists team consulted Most likely patient will be extubatable this morning while some additional studies are pending 05/01/17 Patient extubated early afternoon Awake alert oriented Hemodynamically fully intact Incision clean and dry abdomen soft hypoactive bowel sounds Excellent palpable femoral and distal pulses both feet are warm Hemoglobin is stable Plan Out of bed tomorrow Continue n.p.o. NG tube Decrease IV rate Doing really well at this time Objective: Vital Signs Date Time Temp Pulse Resp B/P (MAP) Pulse Ox O2 Delivery O2 Flow Rate FiO2 05/01/17 20:08 97 Nasal Cannula 3.00 05/01/17 16:00 98.4 76 16 104/64 (77) 98 05/01/17 15:47 97 Nasal Cannula 3.00 05/01/17 15:20 75 115/80 05/01/17 15:10 94 Nasal Cannula 3 05/01/17 15:10 97 Nasal Cannula 3.00 05/01/17 15:00 73 05/01/17 13:52 74 89/57 05/01/17 13:28 99 40 05/01/17 13:07 98 88/64 05/01/17 12:00 40 05/01/17 12:00 99.2 86 14 99/64 (76) 99 05/01/17 11:38 91 106/68 05/01/17 11:00 95 05/01/17 10:31 94 117/82 05/01/17 09:51 99 40 05/01/17 09:51 40 05/01/17 09:31 98.9 102 18 88/62 (71) 99 05/01/17 09:15 96 88/58 05/01/17 08:51 97 102/68 05/01/17 08:23 122 75/46 05/01/17 08:11 102 113/66 05/01/17 08:00 40 05/01/17 07:53 99 40 05/01/17 07:00 100 05/01/17 06:45 97 112/75 05/01/17 06:00 65 05/01/17 06:00 97.5 65 20 80/50 (60) 100 05/01/17 05:51 100 40 05/01/17 00:27 71 18 128/78 (95) 97 Nasal Cannula 2.00 04/30/17 23:32 71 18 129/72 (91) 97 Nasal Cannula 2.00 04/30/17 21:34 97.6 54 16 115/73 (87) 97 04/30/17 21:23 98.5 58 16 71/43 (52) 98 Room Air Labs: Laboratory Tests Test 05/01/17 14:46 Blood Gas Puncture Site LT FEMORAL Blood Gas Patient Temperature 98.6 Blood Gas HCO3 22 mmol/L (22-26) Blood Gas Base Excess -2.3 mmol/L (-2-2) Blood Gas Oxygen Saturation 95 % (90-100) Arterial Blood pH 7.38 (7.380-7.420) Arterial Blood Partial Pressure CO2 38 mmHg (38-42) Arterial Blood Partial Pressure O2 90 mmHg (61-120) Arterial Blood Oxygen Content 14.5 Vol % (12.0-20.0) Arterial Blood Carboxyhemoglobin 1.0 % (0-4) Arterial Blood Methemoglobin 1.2 % (0-2) Blood Gas Hemoglobin 10.8 G/DL (12.0-16.0) Oxygen Delivery Device VENTILATOR Blood Gas Ventilator Setting [id number] Blood Gas Inspired Oxygen 40 % Result Diagram: 05/01/1759905/01/17599 Kevin Perez MD May 01, 2017 20:55
[2017-05-02] VITALS (12 sets, daily range): BP systolic 86–131; BP diastolic 60–81; PULSE 70–86; RESP 16–22; TEMP 97.9–99; O2SAT 94–99
[2017-05-02] MEDS: HYDROmorphone HCL PF 2 MG/ML VIAL IV PUSH PRN ×5 (00:10→12:53)
[2017-05-02] MEDS: RESP: ALBUTEROL 2.5 MG/IPRATROPIUM 0.5 MG NEB (SCH) NEB ×4 (03:34→22:00)
[2017-05-02] MEDS: CHLORHEXIDINE GLUCONATE 2 % 1 PACK (2 CLOTHS) TOP SCH (04:00)
[2017-05-02] MEDS: NORMOSOL R INJ 1,000 ML IV SCH ×2 (04:55→16:17)
--- NOTE | 2017-05-02 05:25 | RADRPT ---
EXAM DATE/TIME: 05/02/2017 04:18 [place] COMPARISON: CHEST SINGLE AP, May 01, 2017, 6:00. INDICATIONS : Shortness of breath, possible pulmonary disease. MEDICAL HISTORY : Myocardial infarction. Hypertension Cardiovascular disease. AAA SURGICAL HISTORY : CABG. Appendectomy. Abdominal aortic aneurysm repair. ENCOUNTER: Subsequent ACUITY: 3 days PAIN SCORE: Non-responsive. LOCATION: Bilateral chest FINDINGS: A single portable frontal view the chest shows persistent consolidation within the left base. A new p atchy area consolidation within the medial right base. No effusions. Heart is normal in size. Left-si ded central line and nasogastric tube noted. Endotracheal tube not well-seen and may be removed. CONCLUSION: Bibasilar consolidations. The right is new from the prior study. The slightly relates to atelectasis. Zeyad Aleman Jr., MD on May 02, 2017 at 5:23 Board Certified Radiologist. This report was verified electronically.
[2017-05-02] MEDS: INSULIN ASPART SUPPLEMENTAL SCALE SQ SCH ×4 (06:00→18:00)
[2017-05-02] MEDS: ACETAMINOPHEN 1000 MG/100 ML 100 ML IV SCH ×3 (06:12→18:08)
[2017-05-02 06:32] LABS: AUTOMATED NEUTROPHIL # 9.9 TH/MM3 (1.8-7.7); BASOPHIL % 0.1 % (0.0-2.0); EOSINOPHIL % 0.1 % (0.0-4.0); HEMATOCRIT 31.2 % (39.0-51.0); HEMOGLOBIN 10.5 GM/DL (13.0-17.0); LYMPH % 7.4 % (9.0-44.0); LYMPHOCYTE # 0.9 TH/MM3 (1.0-4.8); MEAN CELL VOLUME 89.2 FL (80.0-100.0); MEAN CORPUSCULAR HGB CONC 33.6 % (32.0-36.0); MEAN PLATELET VOLUME 7.9 FL (7.0-11.0); MONO % 7.6 % (0.0-8.0); MONOCYTE # 0.9 TH/MM3 (0-0.9); NEUT % 84.8 % (16.0-70.0); PLATELET COUNT 167 TH/MM3 (150-450); RED BLOOD COUNT 3.49 MIL/MM3 (4.50-5.90); RED CELL DISTRIBUTION WIDTH 14.4 % (11.6-17.2); WHITE BLOOD COUNT 11.7 TH/MM3 (4.0-11.0)
[2017-05-02 06:48] LABS: ALBUMIN 2.8 GM/DL (3.4-5.0); ALKALINE PHOSPHATASE 46 U/L (45-117); ALT (GPT) 14 U/L (12-78); AST (GOT) 20 U/L (15-37); BICARBONATE 26.1 MEQ/L (21.0-32.0); BLOOD UREA NITROGEN 17 MG/DL (7-18); CALCIUM 8.1 MG/DL (8.5-10.1); CHLORIDE 106 MEQ/L (98-107); CREATININE 1.54 MG/DL (0.60-1.30); GLOMERULAR FILTRATION RATE 44 ML/MIN (>89); GLUCOSE,RANDOM 92 MG/DL (74-106); SODIUM (NA) 138 MEQ/L (136-145); TOTAL BILIRUBIN ADULT 0.5 MG/DL (0.2-1.0); TOTAL PROTEIN 5.2 GM/DL (6.4-8.2)
[2017-05-02] MEDS: PANTOPRAZOLE SODIUM 40 MG VIAL IV PUSH SCH (08:41)
[2017-05-02] MEDS: SODIUM CHLORIDE 0.9% FLUSH 10 ML FLUSH IV FLUSH SCH ×2 (08:41→19:59)
[2017-05-02] MEDS: CHLORHEXIDINE 0.12% (ORAL KIT) 15 ML CUP MT SCH ×2 (08:42→19:58)
[2017-05-02] MEDS: FAMOTIDINE 20 MG/2 ML VIAL IV PUSH SCH (08:44)
--- NOTE | 2017-05-02 10:16 | MP ---
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 PROCEDURE PERFORMED: Open juxtarenal abdominal aortic aneurysm repair with a straight 26 millimeter graft. SURGEON: El Perez MD ANESTHESIA: General. ESTIMATED BLOOD LOSS: About 400 milliliters. DESCRIPTION OF PROCEDURE: The patient prepped and draped in usual fashion and after brought to the operating room, this gentleman had a contained posterior rupture of the aneurysm, was initially hypotensive, was resuscitated and hence the procedure. A mid abdominal incision is made and the abdomen entered. A Bookwalter retractor positioned. The small intestines packed in the right upper quadrant. The abdomen was explored in quadrants. There is some diverticula in the colon, but otherwise no abnormalities noted. The patient's has enormous aneurysm, measuring about 12 cm in outer diameter, which is sort of tortuous, pulsatile. Left retroperitoneum is bulging out with blood in the inferior portion of the aneurysm area, bluish discolorated. The procedure is started by dissecting sharply the duodenum off the aneurysm surface and this one is carefully packed in the right upper quadrant. The peritoneum is incised over the aneurysm and neck is explored. The patient has a juxtarenal aneurysm and after dissecting very carefully around the neck anteriorly and laterally, all the way to the vertebra, it is noted that the right renal artery will need to be temporarily clamped while doing the repair. Otherwise, I would have nothing to sew into, while the left one could be released. Left renal vein is right in the way, had to be divided and ligated. The neck is now very carefully dissected with a sharp dissection and then a Verduzco clamp is chosen for later on clamping. The peritoneum is now incised over the rest of the aneurysm to the bottom. Once I got to the lower part of the aneurysm, there was some retroperitoneal blood, probably 400 milliliters of it and this thing is starting to leak at this point. The lower portion of the aneurysm is dissected free, carefully preserving the ureters, of course, and preserving the vena cava. With a sharp dissection, the lower portion of the aneurysm, just above the bifurcation is chosen. This is dissected and the decision is made now to put a simply straight graft, that is what I am going to do. The patient was given 7000 units of heparin and then first proximal, then distal clamps are applied using Verduzco cranially and angled DeBakey caudally. The aneurysm is now opened with Torres scissors. This is very calcified structure. There is enormous amount of luminal material which is scooped out. Two lumbar arteries are ligated with 0 Vicryl [id number]. Now, the aneurysm sac is irrigated with copious amounts of saline and then Jillian-Sahra retractor positioned. Posteriorly, there is a large vertical slit of rupture towards the vertebra. With Metzenbaum scissors, the proximal and distal and the now tailored, in order to prepare it nicely for anastomosis. A 26 millimeter graft is chosen. This one is sewn with running 3-0 Prolene first proximally and then immediately after doing this, which took about 30 minutes from the clamp time, the clamp is repositioned onto the graft and released, allowing the renal artery blood flow again to continue. A small sleeve is created from the graft, which is then slid over the anastomosis to reinforce the same. Now, the distal end is attended. This one needed to be endarterectomized with [place] dissector because it was pure calcium and once it is endarterectomized, the tissue appears to be fairly reasonable. The iliac arteries are now back bled and with a flushing of the clamp and now the anastomosis is again created with running 3-0 Prolene. Now, the distal end is released, air is let out and then the blood flow is reestablished. There is one tiny area that is still leaking and this one is taken care with 4-0 Prolene on the pledget. This completes the procedures. There are no other leaks. The area irrigated with copious amounts of saline. There is an area of lymphatic leakage up on the proximal end of the aneurysm, pararenal on the right. This one is oversewn with some 3-0 Prolene and this controls the lymphatic leak pretty good. Some BioGlue is placed over both anastomoses. The aneurysm sac is now trimmed off and the surplus removed and then it is oversewn over the graft with running #1 Vicryl. Small bowel is run, large bowel is run. Liver is observed. NG tube position is checked. Abdomen is explored again in quadrants, now irrigated with copious amounts of saline throughout the abdomen and then incision closed with #1 PDS loop and abby. The patient tolerated the procedure well. At the end of the procedure, the patient has bounding pulse in both groins, feet are warm. He is hemodynamically intact. The patient had a huge fluid shift with a ruptured aneurysm and, therefore, a decision is made to keep the patient intubated, of course, postop. He should be extubated over the next 24-48 hours barring any surprises. MD SARAH Trujillo/SUSAN , 07:38 PM , 08:26 PM SMOOTH
--- NOTE | 2017-05-02 17:33 | ECHRPT ---
Indication: ASSESS LV FUNC, AAA DISSECTION CONCLUSIONS Normal left ventricular size. Mild concentric left ventricular hypertrophy. The left ventricular systolic function is hyperdynamic with an estimated ejection fraction in the ra nge of 65- 70%. The left atrial size is [id number] dilated. The right atrial size is mildly dilated. Mild aortic dilatation at the level of the sinuses of Valsalva. Mildly dilated proximal ascending aorta. Mild mitral annular calcification. Trace aortic valve regurgitation. Aortic valve sclerosis is present. There is mild to moderate tricuspid valve regurgitation. BP: 102 / 68 HR: Rhythm: Sinus MEASUREMENTS (Male / Female) Normal Values Technical Quality:Fair 2D ECHO LV Diastolic Diameter PLAX 3.7 cm 4.2 - 5.9 / 3.9 - 5.3 cm LV Systolic Diameter PLAX 2.5 cm IVS Diastolic Thickness 1.1 cm 0.6 - 1.0 / 0.6 - 0.9 cm LVPW Diastolic Thickness 1.1 cm 0.6 - 1.0 / 0.6 - 0.9 cm LV Relative Wall Thickness 0.6 RV Internal Dim ED PLAX 3.1 cm LVOT Diameter 2.5 cm Aortic Root Diameter 4.5 cm LA Systolic Diameter LX 4.6 cm 3.0 - 4.0 / 2.7 - 3.8 cm M-MODE AV Cusp Separation MM 2.8 cm DOPPLER AV Peak Velocity 146.0 cm/s AV Peak Gradient 8.5 mmHg AV Mean Gradient 5.0 mmHg AV Velocity Time Integral 24.8 cm LVOT Peak Velocity 100.0 cm/s LVOT Peak Gradient 4.0 mmHg LVOT Velocity Time Integral 25.2 cm AV Area Cont Eq vti 5.0 cm AV Area Cont Eq pk 3.4 cm Mitral E Point Velocity 79.0 cm/s Mitral A Point Velocity 91.3 cm/s Mitral E to A Ratio 0.9 LV E' Lateral Velocity 7.8 cm/s Mitral E to LV E' Lateral Ratio 10.2 LV E' Septal Velocity 5.9 cm/s Mitral E to LV E' Septal Ratio 13.3 TR Peak Velocity 363.0 cm/s TR Peak Gradient 52.7 mmHg Right Atrial Pressure 10.0 mmHg Pulmonary Artery Systolic Pressu 62.7 mmHg Right Ventricular Systolic Press 62.7 mmHg PV Peak Velocity 72.9 cm/s PV Peak Gradient 2.1 mmHg FINDINGS LEFT VENTRICLE Normal left ventricular size. Mild concentric left ventricular hypertrophy. The left ventricular systolic function is hyperdynamic with an estimated ejection fraction in the ra nge of 65- 70%. RIGHT VENTRICLE Normal right ventricular size and systolic function. LEFT ATRIUM The left atrial size is [id number]-wj-[id number] dilated. RIGHT ATRIUM The right atrial size is mildly dilated. ATRIAL SEPTUM The interatrial septum not well visualized. AORTA Mild aortic dilatation at the level of the sinuses of Valsalva. Mildly dilated proximal ascending aorta. MITRAL VALVE Mild mitral annular calcification. AORTIC VALVE Trileaflet aortic valve. Trace aortic valve regurgitation. Aortic valve sclerosis is present. TRICUSPID VALVE There is mild to moderate tricuspid valve regurgitation. PULMONARY VALVE No pulmonary valve regurgitation or stenosis. VESSELS The inferior vena cava was not well visualized. PERICARDIUM No pericardial effusion. Derrell Madera MD, FACC (Electronically Signed) Final Date:02 May 2017 17:32
[2017-05-02] MEDS: REMOVE OLD PATCH T-DERMAL SCH (18:00)
--- NOTE | 2017-05-02 18:33 | PD.CAR.PN ---
CVT Progress Note Subjective/Hospital Course: 05/01/2017 Patient with a posterior partially contained rupture of juxtarenal abdominal aortic aneurysm Status post emergent repair with a straight graft Patient now in the ICU Intensivists team consulted Most likely patient will be extubatable this morning while some additional studies are pending 05/02/2017 Patient extubated yesterday successfully Awake alert and oriented Bilateral good breath sounds Abdomen soft hypoactive bowel sounds Incision is clean and dry Excellent distal pulses Plan Decrease IV rate Gently diurese patient P.o. liquids Pain regimen combination of IV and p.o. meds DC Montalvo DC NG tube Transfer patient to floor tomorrow Objective: Vital Signs Date Time Temp Pulse Resp B/P (MAP) Pulse Ox O2 Delivery O2 Flow Rate FiO2 05/02/17 15:00 99 Nasal Cannula 2.00 05/02/17 15:00 86 05/02/17 13:23 16 05/02/17 12:23 94 Nasal Cannula 2.00 05/02/17 12:00 99.0 77 21 131/81 (98) 95 05/02/17 11:00 79 05/02/17 11:00 98 Nasal Cannula 2.00 05/02/17 08:00 98.9 73 16 86/60 (69) 94 05/02/17 07:00 94 Nasal Cannula 2.00 05/02/17 07:00 78 05/02/17 04:00 78 05/02/17 04:00 97.9 79 20 96/66 (76) 94 05/02/17 04:00 94 Nasal Cannula 2.00 05/02/17 00:00 98 Nasal Cannula 2.00 05/02/17 00:00 76 05/02/17 00:00 98.0 76 18 98/66 (77) 98 05/01/17 20:08 97 Nasal Cannula 3.00 05/01/17 20:00 76 05/01/17 20:00 98.0 75 18 126/79 (95) 97 05/01/17 20:00 97 Nasal Cannula 2.00 Result Diagram: 05/02/17 0540 05/02/17 0540 Kevin Perez MD May 02, 2017 18:33
[2017-05-02] MEDS: MORPHINE SULFATE 4 MG/ML INJ IV PUSH PRN (19:53)
[2017-05-02] MEDS: fentaNYL 50 MCG/HR PATCH T-DERMAL SCH (19:58)
[2017-05-02] MEDS: HEPARIN SODIUM - SQ 10,000 UNITS/ML VIAL SQ SCH (21:28)
[2017-05-02] MEDS: oxyCODONE/ACETAMINOPHEN 5 MG/325 MG TAB PO PRN (21:52)
[2017-05-03] VITALS (12 sets, daily range): BP systolic 107–145; BP diastolic 66–87; PULSE 77–100; RESP 18–20; TEMP 98–98.8; O2SAT 94–97
[2017-05-03] MEDS: MORPHINE SULFATE 4 MG/ML INJ IV PUSH PRN (00:12)
[2017-05-03] MEDS: ACETAMINOPHEN 1000 MG/100 ML 100 ML IV SCH ×3 (00:13→11:58)
[2017-05-03] MEDS: RESP: ALBUTEROL 2.5 MG/IPRATROPIUM 0.5 MG NEB (SCH) NEB ×4 (03:42→21:34)
[2017-05-03] MEDS: CHLORHEXIDINE GLUCONATE 2 % 1 PACK (2 CLOTHS) TOP SCH (04:00)
[2017-05-03] MEDS: INSULIN ASPART SUPPLEMENTAL SCALE SQ SCH ×4 (05:58→17:11)
[2017-05-03] MEDS: CHLORHEXIDINE 0.12% (ORAL KIT) 15 ML CUP MT SCH ×2 (07:30→20:00)
[2017-05-03] MEDS: PANTOPRAZOLE SODIUM 40 MG VIAL IV PUSH SCH (08:55)
[2017-05-03] MEDS: PANTOPRAZOLE SOD 40 MG DELAYED RELEASE TAB PO SCH (08:55)
[2017-05-03] MEDS: HEPARIN SODIUM - SQ 10,000 UNITS/ML VIAL SQ SCH ×2 (08:55→21:00)
[2017-05-03] MEDS: oxyCODONE/ACETAMINOPHEN 5 MG/325 MG TAB PO PRN ×2 (08:55→15:03)
[2017-05-03] MEDS: SODIUM CHLORIDE 0.9% FLUSH 10 ML FLUSH IV FLUSH SCH ×2 (08:56→21:00)
[2017-05-03] MEDS ORDERED: FUROSEMIDE 40 MG/4 ML VIAL IV PUSH ONE (16:00)
[2017-05-03] MEDS ORDERED: LACTULOSE SYRUP 20 GM/30 ML CUP PO ONE (16:00)
--- NOTE | 2017-05-03 18:54 | PD.CAR.PN ---
CVT Progress Note Subjective/Hospital Course: 05/01/2017 Patient with a posterior partially contained rupture of juxtarenal abdominal aortic aneurysm Status post emergent repair with a straight graft Patient now in the ICU Intensivists team consulted Most likely patient will be extubatable this morning while some additional studies are pending 05/02/2017 Patient extubated yesterday successfully Awake alert and oriented Bilateral good breath sounds Abdomen soft hypoactive bowel sounds Incision is clean and dry Excellent distal pulses Plan Decrease IV rate Gently diurese patient P.o. liquids Pain regimen combination of IV and p.o. meds DC Montalvo DC NG tube Transfer patient to floor tomorrow 05/03/2017 Patient doing really well Awake alert and oriented Bilateral breath sounds Heart regular rhythm Abdomen is soft hypoactive bowel sounds midline incision is clean and dry Palpable proximal and distal pulses in both legs Plan Advance to diet Gently diurese Transfer to floor Active ambulation PT OT Anticipate discharge about or Tuesday Objective: Vital Signs Date Time Temp Pulse Resp B/P (MAP) Pulse Ox O2 Delivery O2 Flow Rate FiO2 05/03/17 16:25 94 Nasal Cannula 4.00 05/03/17 16:03 20 05/03/17 15:14 95 Nasal Cannula 4.00 05/03/17 15:10 98.4 82 20 118/84 (95) 95 05/03/17 15:00 83 05/03/17 12:28 20 05/03/17 12:00 96 Nasal Cannula 4.00 05/03/17 11:34 98.0 83 18 107/66 (80) 96 05/03/17 11:00 79 05/03/17 10:22 97 Nasal Cannula 3.00 05/03/17 08:01 Nasal Cannula 4.00 05/03/17 08:00 98.6 77 20 112/79 (90) 05/03/17 07:00 79 05/03/17 03:00 98.0 83 18 107/66 (80) 96 05/03/17 03:00 86 05/03/17 03:00 96 Nasal Cannula 5.00 05/02/17 23:00 78 05/02/17 23:00 98 Nasal Cannula 4.00 05/02/17 23:00 98.4 76 18 121/79 (93) 99 05/02/17 19:30 98 Nasal Cannula 4.00 05/02/17 19:15 98.4 80 18 129/81 (97) 99 05/02/17 19:00 80 Result Diagram: 05/02/17 0540 05/02/17 0540 Kevin Perez MD May 03, 2017 18:54
[2017-05-03] MEDS: DOCUSATE SODIUM 100 MG CAP PO SCH (21:00)
[2017-05-04] VITALS (8 sets, daily range): BP systolic 114–143; BP diastolic 72–82; PULSE 77–94; RESP 14–22; TEMP 96.4–98.7; O2SAT 91–98
[2017-05-04] MEDS: oxyCODONE/ACETAMINOPHEN 5 MG/325 MG TAB PO PRN ×4 (02:32→21:15)
[2017-05-04] MEDS: CHLORHEXIDINE GLUCONATE 2 % 1 PACK (2 CLOTHS) TOP SCH (04:00)
[2017-05-04] MEDS: RESP: ALBUTEROL 2.5 MG/IPRATROPIUM 0.5 MG NEB (SCH) NEB ×4 (04:57→20:37)
[2017-05-04] MEDS: INSULIN ASPART SUPPLEMENTAL SCALE SQ SCH ×5 (06:00→23:37)
[2017-05-04] MEDS: CHLORHEXIDINE 0.12% (ORAL KIT) 15 ML CUP MT SCH ×2 (08:00→20:00)
[2017-05-04] MEDS: DOCUSATE SODIUM 100 MG CAP PO SCH ×2 (09:34→21:16)
[2017-05-04] MEDS: PANTOPRAZOLE SOD 40 MG DELAYED RELEASE TAB PO SCH (09:34)
[2017-05-04] MEDS: SODIUM CHLORIDE 0.9% FLUSH 10 ML FLUSH IV FLUSH SCH ×2 (09:34→21:16)
[2017-05-04] MEDS: HEPARIN SODIUM - SQ 10,000 UNITS/ML VIAL SQ SCH ×2 (09:35→21:15)
[2017-05-04] MEDS ORDERED: BISACODYL 10 MG SUPP RECTAL PRN (12:30)
--- NOTE | 2017-05-04 16:33 | PD.CAR.PN ---
CVT Progress Note Subjective/Hospital Course: 05/01/2017 Patient with a posterior partially contained rupture of juxtarenal abdominal aortic aneurysm Status post emergent repair with a straight graft Patient now in the ICU Intensivists team consulted Most likely patient will be extubatable this morning while some additional studies are pending 05/02/2017 Patient extubated yesterday successfully Awake alert and oriented Bilateral good breath sounds Abdomen soft hypoactive bowel sounds Incision is clean and dry Excellent distal pulses Plan Decrease IV rate Gently diurese patient P.o. liquids Pain regimen combination of IV and p.o. meds DC Montalvo DC NG tube Transfer patient to floor tomorrow 05/03/2017 Patient doing really well Awake alert and oriented Bilateral breath sounds Heart regular rhythm Abdomen is soft hypoactive bowel sounds midline incision is clean and dry Palpable proximal and distal pulses in both legs Plan Advance to diet Gently diurese Transfer to floor Active ambulation PT OT Anticipate discharge about or Tuesday05/04/2017 Patient doing very well Abdomen soft active bowel sounds Taking good breaths Encouraged to ambulate Given Lasix yesterday and diuresed nicely swelling systemically decreased All things equal patient will be discharged tomorrow Objective: Vital Signs Date Time Temp Pulse Resp B/P (MAP) Pulse Ox O2 Delivery O2 Flow Rate FiO2 05/04/17 16:26 Nasal Cannula 3.00 05/04/17 15:35 Nasal Cannula 3.00 05/04/17 15:22 96.4 89 19 136/72 (93) 97 05/04/17 12:02 14 05/04/17 11:00 83 05/04/17 11:00 94 Nasal Cannula 5.00 05/04/17 11:00 98.4 83 14 114/75 (88) 91 05/04/17 10:34 91 Nasal Cannula 3.00 05/04/17 07:00 98.7 77 16 121/82 (95) 95 05/04/17 07:00 77 05/04/17 07:00 95 Nasal Cannula 5.00 05/04/17 03:00 93 05/04/17 03:00 97 Nasal Cannula 6.00 05/04/17 03:00 98.7 93 22 143/82 (102) 97 05/03/17 23:00 94 Nasal Cannula 5.00 05/03/17 23:00 98.8 100 18 109/73 (85) 94 05/03/17 23:00 96 05/03/17 21:34 94 Nasal Cannula 5.00 05/03/17 19:00 97 05/03/17 19:00 97 Nasal Cannula 6.00 05/03/17 19:00 98.6 97 20 145/87 (106) 97 Result Diagram: 05/02/17 0540 05/02/17 0540 Kevin Perez MD May 04, 2017 16:33
[2017-05-05] VITALS (9 sets, daily range): BP systolic 102–136; BP diastolic 63–73; PULSE 77–87; RESP 17–19; TEMP 97.1–98.3; O2SAT 92–96
[2017-05-05] MEDS: oxyCODONE/ACETAMINOPHEN 5 MG/325 MG TAB PO PRN ×4 (02:40→22:13)
[2017-05-05] MEDS: CHLORHEXIDINE GLUCONATE 2 % 1 PACK (2 CLOTHS) TOP SCH (03:57)
[2017-05-05] MEDS: RESP: ALBUTEROL 2.5 MG/IPRATROPIUM 0.5 MG NEB (SCH) NEB ×2 (05:04→08:54)
[2017-05-05] MEDS: INSULIN ASPART SUPPLEMENTAL SCALE SQ SCH ×3 (06:00→18:00)
[2017-05-05] MEDS: CHLORHEXIDINE 0.12% (ORAL KIT) 15 ML CUP MT SCH ×2 (08:00→20:00)
[2017-05-05] MEDS: HEPARIN SODIUM - SQ 10,000 UNITS/ML VIAL SQ SCH ×2 (08:29→22:13)
[2017-05-05] MEDS: SODIUM CHLORIDE 0.9% FLUSH 10 ML FLUSH IV FLUSH SCH ×2 (08:30→22:13)
[2017-05-05] MEDS: DOCUSATE SODIUM 100 MG CAP PO SCH ×2 (08:30→22:13)
[2017-05-05] MEDS: PANTOPRAZOLE SOD 40 MG DELAYED RELEASE TAB PO SCH (08:30)
[2017-05-05] MEDS ORDERED: FENT50T T-DERMAL (16:40)
[2017-05-05] MEDS ORDERED: OXYC1TAB63 PO (16:41)
[2017-05-05] MEDS ORDERED: WALKER WHEELS/F1 MIS (16:43)
[2017-05-05] MEDS ORDERED: OXYGENDME NAS.CANULA (16:43)
--- NOTE | 2017-05-05 16:50 | PD.CAR.PN ---
CVT Progress Note Subjective/Hospital Course: 05/01/2017 Patient with a posterior partially contained rupture of juxtarenal abdominal aortic aneurysm Status post emergent repair with a straight graft Patient now in the ICU Intensivists team consulted Most likely patient will be extubatable this morning while some additional studies are pending 05/02/2017 Patient extubated yesterday successfully Awake alert and oriented Bilateral good breath sounds Abdomen soft hypoactive bowel sounds Incision is clean and dry Excellent distal pulses Plan Decrease IV rate Gently diurese patient P.o. liquids Pain regimen combination of IV and p.o. meds DC Montalvo DC NG tube Transfer patient to floor tomorrow 05/03/2017 Patient doing really well Awake alert and oriented Bilateral breath sounds Heart regular rhythm Abdomen is soft hypoactive bowel sounds midline incision is clean and dry Palpable proximal and distal pulses in both legs Plan Advance to diet Gently diurese Transfer to floor Active ambulation PT OT Anticipate discharge about or Tuesday05/04/2017 Patient doing very well Abdomen soft active bowel sounds Taking good breaths Encouraged to ambulate Given Lasix yesterday and diuresed nicely swelling systemically decreased All things equal patient will be discharged tomorrow 05/05/2017 Patient doing very well today Abdomen soft active bowel sounds Incision clean and dry Excellent distal pulses We will discharge patient today or tomorrow morning depending on arrangements for home oxygen Follow-up with me on 17 May in my office Objective: Vital Signs Date Time Temp Pulse Resp B/P (MAP) Pulse Ox O2 Delivery O2 Flow Rate FiO2 05/05/17 11:44 97.8 80 19 136/63 (87) 96 05/05/17 08:57 95 Nasal Cannula 3.00 05/05/17 07:31 97.1 78 19 102/63 (76) 92 05/05/17 04:50 98.3 84 18 122/73 (89) 95 05/05/17 04:00 77 05/05/17 00:10 81 05/04/17 23:15 98.4 87 17 116/75 (89) 98 05/04/17 21:20 94 05/04/17 19:45 97.2 90 18 122/75 (91) 94 Result Diagram: 05/02/17 0540 05/02/17 0540 Kevin Perez MD May 05, 2017 16:49
[2017-05-05] MEDS: REMOVE OLD PATCH T-DERMAL SCH (18:00)
[2017-05-05] MEDS: ASPIRIN 325 MG TAB PO SCH (18:44)
[2017-05-05] MEDS: fentaNYL 50 MCG/HR PATCH T-DERMAL SCH (18:44)
[2017-05-06] VITALS (7 sets, daily range): BP systolic 114–141; BP diastolic 68–86; PULSE 79–94; RESP 17; TEMP 96.2–98.9; O2SAT 92–98
[2017-05-06] MEDS: oxyCODONE/ACETAMINOPHEN 5 MG/325 MG TAB PO PRN ×3 (02:21→12:49)
[2017-05-06] MEDS: CHLORHEXIDINE GLUCONATE 2 % 1 PACK (2 CLOTHS) TOP SCH (02:21)
[2017-05-06] MEDS: INSULIN ASPART SUPPLEMENTAL SCALE SQ SCH ×3 (05:31→12:00)
[2017-05-06] MEDS: CHLORHEXIDINE 0.12% (ORAL KIT) 15 ML CUP MT SCH (08:00)
[2017-05-06] MEDS: ASPIRIN 325 MG TAB PO SCH (08:15)
[2017-05-06] MEDS: DOCUSATE SODIUM 100 MG CAP PO SCH (08:15)
[2017-05-06] MEDS: PANTOPRAZOLE SOD 40 MG DELAYED RELEASE TAB PO SCH (08:15)
[2017-05-06] MEDS: SODIUM CHLORIDE 0.9% FLUSH 10 ML FLUSH IV FLUSH SCH (08:17)
[2017-05-06] MEDS: HEPARIN SODIUM - SQ 10,000 UNITS/ML VIAL SQ SCH (08:17)
[2017-05-06] MEDS ORDERED: FENT50DI T-DERMAL (12:18)
== END 2017-05-06 14:43 | disposition home or self-care (01) | DRG 269 ==
LOC: NEPC 21:02 → NEDA 05-01 00:03 → HCVI 05-01 05:31 → N06A 05-04 15:01 → N06B 05-04 15:46 → N06A 05-04 15:47
PROVIDERS: ADMIT Internal Medicine Critical Care Medicine; ATTEND Internal Medicine Critical Care Medicine
PROC: 04R00JZ Replacement of Abdominal Aorta with Synthetic Substitute, Open Approach (ICD-10-PCS; principal; 2017-05-01 00:52)
DX: I71.3 Abdominal aortic aneurysm, ruptured (principal); I95.9 Hypotension, unspecified; R06.89 Other abnormalities of breathing; I10 Essential (primary) hypertension; I25.10 Atherosclerotic heart disease of native coronary artery without angina pectoris; R09.02 Hypoxemia; I25.2 Old myocardial infarction; D72.829 Elevated white blood cell count, unspecified; R73.9 Hyperglycemia, unspecified; Z88.5 Allergy status to narcotic agent; Z95.1 Presence of aortocoronary bypass graft; Z96.652 Presence of left artificial knee joint
CPT/HCPCS: 36600; 71045; 74177; 80053; 81001; 82805; 82948; 83605; 83690; 83735; 85025; 85610; 85730; 86850; 86900; 86901; 86920; 87641; 88305; 88311; 93005; 93306; 94002; 94150; 94618; 94640; 94664; 96361; 96374; 96375; 96376; C1768; C9113; J0131; J0171; J0690; J1170; J1644; J1815; J1885; J1940; J2270; J2370; J2405; J2710; J3010; J7030; J7050; P9045; Q9967